=== PATIENT | male | born 1995 | race Caucasian/White ===

== ENCOUNTER 2017-11-08 05:30 | Emergency (ER) | payer OTHER, SELFPAY ==
[2017-11-08 05:45] VITALS: BP 125/78; PULSE 51; RESP 18; TEMP 36.2
--- NOTE | 2017-11-08 05:56 | ED.MALEGU ---
HPI - Male Genitourinary General Chief complaint: Urogenital-Male Stated complaint: KIDNEY STONES Time Seen by Provider: 11/08/17 05:33 Source: patient Mode of arrival: ambulatory Limitations: no limitations History of Present Illness HPI Narrative: Patient with a history of kidney stones presents with a chief complaint of sudden onset left flank pain with radiation to his left groin that started 8:00 p.m.. He denies provocation or palliation. He denies any fever or chills. He denies dysuria, frequency or urgency. He states prior kidney stones of all but on the right side. He has never needed any urological intervention for prior stones Duration: intermittent Location: left flank Severity: severe Quality: aching, burning and sharp Relieving factors: none Exacerbating factors: none Related Data Previous Rx's Medication Instructions Recorded hydrocodone-acetaminophen [[place]] 1 - 2 tab PO Q6HP PRN #10 tab 04/01/16 ibuprofen 600 mg PO Q6HP PRN #20 tab 04/01/16 tamsulosin [Flomax] 0.4 mg PO QDAY 4 Days #0 cap 04/01/16 hydrocodone-acetaminophen [[place]] 1 tab PO Q4HP PRN #15 tab 04/09/16 ondansetron [Zofran ODT] 4 mg SUBLINGUAL Q4HP PRN #15 odt 04/09/16 hydrocodone-acetaminophen 1 tab PO Q4-6H PRN #10 tab 11/08/17 ketorolac 10 mg PO Q6H PRN 2 Days tab 11/08/17 ondansetron [Zofran ODT] 4 mg PO Q6H PRN #10 tab 11/08/17 tamsulosin [Flomax] 0.4 mg PO DAILY #10 cap 11/08/17 Allergies Allergy/AdvReac Type Severity Reaction Status Date / Time No Known Drug Allergies Allergy Verified 11/08/17 05:39 Review of Systems Review of Systems All systems reviewed & are unremarkable except as noted in HPI and below Constitutional Denies chills, Denies fever(s), Denies lethargy and Denies weakness Eyes Denies change in vision, Denies eye discharge, Denies irritation and Denies loss of vision ENT Ears, Nose, Mouth, and Throat: Denies change in voice, Denies neck pain and Denies sore throat Cardiovascular Denies chest pain, Denies irregular heart rhythm, Denies lightheadedness, Denies palpitations, Denies dyspnea, Denies dyspnea on exertion and Denies orthopnea Respiratory Denies cough, Denies dyspnea, Denies dyspnea on exertion and Denies wheezing Gastrointestinal Gastrointestinal: Denies abdominal pain, Denies change in bowel habits, Denies diarrhea, Denies nausea and Denies vomiting Genitourinary Denies hematuria, Reports flank pain, Denies urinary incontinence and Denies urinary urgency Musculoskeletal Denies neck pain Integumentary/Breasts Denies pruritus, Denies erythema, Denies rash and Denies wounds Neurologic Denies confusion, Denies loss of vision and Denies weakness Psychiatric Denies anxiety, Denies confusion, Denies depression, Denies homicidal ideation and Denies suicidal ideation Endocrine Denies palpitations Hematologic/Lymphatic Denies easy bruising Allergic/Immunologic Denies wheezing PFSH Social History Smoking Status: Current every day smoker Exam Narrative Exam Narrative: 22-year-old male obviously uncomfortable, clutching his left flank Initial Vital Signs Initial Vital Signs: Vital Signs Temperature 97.2 F L 11/08/17 05:45 Pulse Rate 51 L 11/08/17 05:45 Respiratory Rate 18 11/08/17 05:45 Blood Pressure 125/78 H 11/08/17 05:45 Const General: cooperative and well developed Nutritional Appearance: well nourished Orientation: alert, awake, oriented x3 and not confused [facility] Head: normocephalic and atraumatic Ears: external ears normal and TM's normal bilaterally Nose: external nose normal and No nasal discharge Face and sinus: sinuses nontender, face symmetric, no sinus tenderness and No dry mucous membranes Mouth: oral mucosae normal and moist mucous membranes Teeth and gingiva: dentition normal Throat: tonsils normal and uvula midline Chest Chest: normal inspection of the chest Resp Effort & Inspection: normal respiratory effort, able to speak in complete sentences, no respiratory distress and no use of accessory muscles Auscultation: clear to auscultation bilaterally, no rales, no rhonchi and no wheezes Cardio Rate: regular rate Rhythm: regular rhythm Heart Sounds: no click, no gallops, no murmurs and no rubs Pulses: normal peripheral pulses Back/Spine/Pelvis Back: No CVA tenderness Cervical Spine: cervical ROM normal and No pain with cervical ROM Thoracic/Lumbar Spine: thoracic and lumbar spine normal to inspection Skin General: no rashes or lesions noted, No jaundice and No petechiae Neuro General: alert, oriented x3, gait normal and no focal motor deficits Speech: speech normal Psych Appearance: well kempt Mental Status: mental status grossly normal Attitude: cooperative Thought Content: normal and suicidality Judgment: judgment good Course Orders Ordered: Discontinued Medications Sodium Chloride (Normal Saline 0.9%) 1,000 mls @ 1,000 mls/hr IV BOLUS ONE Stop: 11/08/17 06:39 Last Infusion: 11/08/17 06:45 Dose: 0 mls/hr Admin: 11/08/17 06:03 Dose: 1,000 mls/hr Ketorolac Tromethamine (Toradol) 15 mg IV NOW ONE Stop: 11/08/17 05:41 Last Admin: 11/08/17 06:01 Dose: 15 mg Ondansetron HCl (Zofran) 4 mg IV NOW ONE Stop: 11/08/17 05:41 Last Admin: 11/08/17 06:01 Dose: 4 mg Reevaluation(s) Reevaluation #1: Patient nearly completely asymptomatic after above-stated therapies Vital Signs - 8 hr 11/08/17 05:45 Temperature 97.2 F L Pulse Rate 51 L Respiratory Rate 18 Blood Pressure [Left Arm] 125/78 H MDM - Male Genitourinary Lab Data Result diagrams: 11/08/17 05:55 11/08/17 05:55 Lab Results 11/08/17 11/08/17 Range/Units 05:55 05:55 WBC 6.4 (4.5-11.0) X10^3/uL RBC 4.93 (4.5-5.9) X10^6/uL Hgb 11.3 L (13.5-17.5) g/dL Hct 35.4 L (41-53) % MCV 71.7 L (80-100) fL MCH 22.9 L (26-34) PG MCHC 32.0 (30-36) % RDW 22.5 H (11.6-14.8) % Plt Count 219 (150-400) X10^3/uL Neut % (Auto) 57.6 (50-75) % Lymph % (Auto) 28.1 (25-40) % [place] % (Auto) 6.4 (3-14) % Eos % (Auto) 7.3 H (2-4) % Baso % (Auto) 0.6 (0-2) % Neut # (Auto) 3700 (4278-4634) /uL RBC Morphology Not Reportable Hypochromasia 2+ H Poikilocytosis 1+ H Anisocytosis 2+ H Microcytosis 2+ H Tear Drop Cells 1+ H Ovalocytes 1+ H Sodium 143 (137-145) mmol/L Potassium 3.5 (3.4-5.1) mmol/L Chloride 103 (98-107) mmol/L Carbon Dioxide 26 (22-32) mmol/L BUN 17 (9-20) mg/dL Creatinine 0.80 (0.66-1.25) mg/dL Estimated GFR > 60.0 (>60) mL/min BUN/Creatinine Ratio 21.3 (6-22) Glucose 100 (70-100) mg/dL Calcium 9.6 (8.4-10.2) mg/dL Discharge Plan Departure Patient Disposition: Home, Self-Care Clinical Impression: Ureterolithiasis Discharge Date/Time: 11/08/17 07:26 Interventions: ED Discharge Assessment Last Done: 11/08/17 07:22 Instructions: DI for Kidney Stones Prescriptions: New hydrocodone-acetaminophen 5-325 mg tablet 1 tab PO Q4-6H PRN (Reason: pain) Qty: 10 RF: 0 ketorolac 10 mg tablet 10 mg PO Q6H PRN (Reason: pain) 2 Days RF: 0 tamsulosin [Flomax] 0.4 mg capsule,extended release 24hr 0.4 mg PO DAILY Qty: 10 RF: 0 ondansetron [Zofran ODT] 4 mg tablet,disintegrating 4 mg PO Q6H PRN (Reason: nausea and vomiting) Qty: 10 RF: 0 No Action hydrocodone-acetaminophen [[place]] 5 MG/325 MG tablet 1 - 2 tab PO Q6HP PRNQty: 10 RF: 0 tamsulosin [Flomax] 0.4 MG capsule,extended release 24hr 0.4 mg PO QDAY 4 Days Qty: 0 RF: 0 ibuprofen 600 MG tablet 600 mg PO Q6HP PRNQty: 20 RF: 0 hydrocodone-acetaminophen [[place]] 5 MG/325 MG tablet 1 tab PO Q4HP PRNQty: 15 RF: 0 ondansetron [Zofran ODT] 4 MG tablet,disintegrating 4 mg Sublingual Q4HP PRNQty: 15 RF: 0 Referrals: Marcell Calvert MD [Non-Staff] - Gregoria Lund DO [Primary Care Provider] -
--- NOTE | 2017-11-08 05:59 | ED_ITS ---
HPI - Male Genitourinary General Chief complaint: Urogenital-Male Stated complaint: KIDNEY STONES Time Seen by Provider: 11/08/17 05:33 Source: patient Mode of arrival: ambulatory Limitations: no limitations History of Present Illness HPI Narrative: Patient with a history of kidney stones presents with a chief complaint of sudden onset left flank pain with radiation to his left groin that started 8:00 p.m.. He denies provocation or palliation. He denies any fever or chills. He denies dysuria, frequency or urgency. He states prior kidney stones of all but on the right side. He has never needed any urological intervention for prior stones Duration: intermittent Location: left flank Severity: severe Quality: aching, burning and sharp Relieving factors: none Exacerbating factors: none Related Data Previous Rx's Medication Instructions Recorded hydrocodone-acetaminophen [[place]] 1 - 2 tab PO Q6HP PRN #10 tab 04/01/16 ibuprofen 600 mg PO Q6HP PRN #20 tab 04/01/16 tamsulosin [Flomax] 0.4 mg PO QDAY 4 Days #0 cap 04/01/16 hydrocodone-acetaminophen [[place]] 1 tab PO Q4HP PRN #15 tab 04/09/16 ondansetron [Zofran ODT] 4 mg SUBLINGUAL Q4HP PRN #15 odt 04/09/16 hydrocodone-acetaminophen 1 tab PO Q4-6H PRN #10 tab 11/08/17 ketorolac 10 mg PO Q6H PRN 2 Days tab 11/08/17 ondansetron [Zofran ODT] 4 mg PO Q6H PRN #10 tab 11/08/17 tamsulosin [Flomax] 0.4 mg PO DAILY #10 cap 11/08/17 Allergies Allergy/AdvReac Type Severity Reaction Status Date / Time No Known Drug Allergies Allergy Verified 11/08/17 05:39 Review of Systems Review of Systems All systems reviewed & are unremarkable except as noted in HPI and below Constitutional Denies chills, Denies fever(s), Denies lethargy and Denies weakness Eyes Denies change in vision, Denies eye discharge, Denies irritation and Denies loss of vision ENT Ears, Nose, Mouth, and Throat: Denies change in voice, Denies neck pain and Denies sore throat Cardiovascular Denies chest pain, Denies irregular heart rhythm, Denies lightheadedness, Denies palpitations, Denies dyspnea, Denies dyspnea on exertion and Denies orthopnea Respiratory Denies cough, Denies dyspnea, Denies dyspnea on exertion and Denies wheezing Gastrointestinal Gastrointestinal: Denies abdominal pain, Denies change in bowel habits, Denies diarrhea, Denies nausea and Denies vomiting Genitourinary Denies hematuria, Reports flank pain, Denies urinary incontinence and Denies urinary urgency Musculoskeletal Denies neck pain Integumentary/Breasts Denies pruritus, Denies erythema, Denies rash and Denies wounds Neurologic Denies confusion, Denies loss of vision and Denies weakness Psychiatric Denies anxiety, Denies confusion, Denies depression, Denies homicidal ideation and Denies suicidal ideation Endocrine Denies palpitations Hematologic/Lymphatic Denies easy bruising Allergic/Immunologic Denies wheezing PFSH Social History Smoking Status: Current every day smoker Exam Narrative Exam Narrative: 22-year-old male obviously uncomfortable, clutching his left flank Initial Vital Signs Initial Vital Signs: Vital Signs Temperature 97.2 F L 11/08/17 05:45 Pulse Rate 51 L 11/08/17 05:45 Respiratory Rate 18 11/08/17 05:45 Blood Pressure 125/78 H 11/08/17 05:45 Const General: cooperative and well developed Nutritional Appearance: well nourished Orientation: alert, awake, oriented x3 and not confused [facility] Head: normocephalic and atraumatic Ears: external ears normal and TM's normal bilaterally Nose: external nose normal and No nasal discharge Face and sinus: sinuses nontender, face symmetric, no sinus tenderness and No dry mucous membranes Mouth: oral mucosae normal and moist mucous membranes Teeth and gingiva: dentition normal Throat: tonsils normal and uvula midline Chest Chest: normal inspection of the chest Resp Effort & Inspection: normal respiratory effort, able to speak in complete sentences, no respiratory distress and no use of accessory muscles Auscultation: clear to auscultation bilaterally, no rales, no rhonchi and no wheezes Cardio Rate: regular rate Rhythm: regular rhythm Heart Sounds: no click, no gallops, no murmurs and no rubs Pulses: normal peripheral pulses Back/Spine/Pelvis Back: No CVA tenderness Cervical Spine: cervical ROM normal and No pain with cervical ROM Thoracic/Lumbar Spine: thoracic and lumbar spine normal to inspection Skin General: no rashes or lesions noted, No jaundice and No petechiae Neuro General: alert, oriented x3, gait normal and no focal motor deficits Speech: speech normal Psych Appearance: well kempt Mental Status: mental status grossly normal Attitude: cooperative Thought Content: normal and suicidality Judgment: judgment good Course Orders Ordered: Discontinued Medications Sodium Chloride (Normal Saline 0.9%) 1,000 mls @ 1,000 mls/hr IV BOLUS ONE Stop: 11/08/17 06:39 Last Infusion: 11/08/17 06:45 Dose: 0 mls/hr Admin: 11/08/17 06:03 Dose: 1,000 mls/hr Ketorolac Tromethamine (Toradol) 15 mg IV NOW ONE Stop: 11/08/17 05:41 Last Admin: 11/08/17 06:01 Dose: 15 mg Ondansetron HCl (Zofran) 4 mg IV NOW ONE Stop: 11/08/17 05:41 Last Admin: 11/08/17 06:01 Dose: 4 mg Reevaluation(s) Reevaluation #1: Patient nearly completely asymptomatic after above-stated therapies Vital Signs - 8 hr 11/08/17 05:45 Temperature 97.2 F L Pulse Rate 51 L Respiratory Rate 18 Blood Pressure [Left Arm] 125/78 H MDM - Male Genitourinary Lab Data Result diagrams: 11/08/17 05:55 11/08/17 05:55 Lab Results 11/08/17 11/08/17 Range/Units 05:55 05:55 WBC 6.4 (4.5-11.0) X10^3/uL RBC 4.93 (4.5-5.9) X10^6/uL Hgb 11.3 L (13.5-17.5) g/dL Hct 35.4 L (41-53) % MCV 71.7 L (80-100) fL MCH 22.9 L (26-34) PG MCHC 32.0 (30-36) % RDW 22.5 H (11.6-14.8) % Plt Count 219 (150-400) X10^3/uL Neut % (Auto) 57.6 (50-75) % Lymph % (Auto) 28.1 (25-40) % [place] % (Auto) 6.4 (3-14) % Eos % (Auto) 7.3 H (2-4) % Baso % (Auto) 0.6 (0-2) % Neut # (Auto) 3700 (6732-9129) /uL RBC Morphology Not Reportable Hypochromasia 2+ H Poikilocytosis 1+ H Anisocytosis 2+ H Microcytosis 2+ H Tear Drop Cells 1+ H Ovalocytes 1+ H Sodium 143 (137-145) mmol/L Potassium 3.5 (3.4-5.1) mmol/L Chloride 103 (98-107) mmol/L Carbon Dioxide 26 (22-32) mmol/L BUN 17 (9-20) mg/dL Creatinine 0.80 (0.66-1.25) mg/dL Estimated GFR > 60.0 (>60) mL/min BUN/Creatinine Ratio 21.3 (6-22) Glucose 100 (70-100) mg/dL Calcium 9.6 (8.4-10.2) mg/dL Discharge Plan Departure Patient Disposition: Home, Self-Care Clinical Impression: Ureterolithiasis Discharge Date/Time: 11/08/17 07:26 Interventions: ED Discharge Assessment Last Done: 11/08/17 07:22 Instructions: DI for Kidney Stones Prescriptions: New hydrocodone-acetaminophen 5-325 mg tablet 1 tab PO Q4-6H PRN (Reason: pain) Qty: 10 RF: 0 ketorolac 10 mg tablet 10 mg PO Q6H PRN (Reason: pain) 2 Days RF: 0 tamsulosin [Flomax] 0.4 mg capsule,extended release 24hr 0.4 mg PO DAILY Qty: 10 RF: 0 ondansetron [Zofran ODT] 4 mg tablet,disintegrating 4 mg PO Q6H PRN (Reason: nausea and vomiting) Qty: 10 RF: 0 No Action hydrocodone-acetaminophen [[place]] 5 MG/325 MG tablet 1 - 2 tab PO Q6HP PRNQty: 10 RF: 0 tamsulosin [Flomax] 0.4 MG capsule,extended release 24hr 0.4 mg PO QDAY 4 Days Qty: 0 RF: 0 ibuprofen 600 MG tablet 600 mg PO Q6HP PRNQty: 20 RF: 0 hydrocodone-acetaminophen [[place]] 5 MG/325 MG tablet 1 tab PO Q4HP PRNQty: 15 RF: 0 ondansetron [Zofran ODT] 4 MG tablet,disintegrating 4 mg Sublingual Q4HP PRNQty: 15 RF: 0 Referrals: Marcell Calvert MD [Non-Staff] - Gregoria Lund DO [Primary Care Provider] -
[2017-11-08] MEDS: KETOROLAC 30 MG/ML VIAL 15 MG IV (06:01)
[2017-11-08] MEDS: ONDANSETRON 4 MG/2 ML INJ IV (06:01)
[2017-11-08] MEDS: SODIUM CHLORIDE 0.9% 1,000 ML 1000 ML IV (06:03)
[2017-11-08 06:12] LABS: Basophils Percent Auto 0.6 % (0-2); Eosinophils Percent Auto 7.3 % (2-4); Hematocrit 35.4 % (41-53); Hemoglobin 11.3 g/dL (13.5-17.5); Lymphocytes Percent Auto 28.1 % (25-40); Mean Corpuscular Hemoglobin 22.9 PG (26-34); Mean Corpuscular Volume 71.7 fL (80-100); Monocytes Percent Auto 6.4 % (3-14); Neutrophils Absolute Auto 3700 /uL (3000-5900); Neutrophils Percent Auto 57.6 % (50-75); Platelet Count 219 X10^3/uL (150-400); Red Blood Cell Count 4.93 X10^6/uL (4.5-5.9); Red Cell Distribution Width 22.5 % (11.6-14.8); White Blood Cell Count 6.4 X10^3/uL (4.5-11.0)
[2017-11-08 06:14] LABS: Add Manual Diff / Slide Review SLIDE REVIEW; BUN Creatinine Ratio 21.3 (6-22); Blood Urea Nitrogen 17 mg/dL (9-20); Calcium 9.6 mg/dL (8.4-10.2); Carbon Dioxide 26 mmol/L (22-32); Chloride 103 mmol/L (98-107); Estimated Glomerular Filt Rate > 60.0 mL/min (>60); Glucose 100 mg/dL (70-100); HEMOLYSIS < 15 (0-50); Potassium 3.5 mmol/L (3.4-5.1); Sodium 143 mmol/L (137-145)
[2017-11-08 06:43] LABS: Anisocytosis 2+; Hypochromasia 2+
[2017-11-08 06:44] LABS: Ovalocytes 1+; Poikilocytosis 1+; Tear Drop Cells 1+
[2017-11-08 06:46] LABS: Microcytosis 2+
[2017-11-08 07:22] VITALS: BP 122/82; PULSE 71; RESP 16; O2SAT 100
== END 2017-11-08 07:26 | disposition home or self-care (01) ==
PROVIDERS: Emergency Provider Emergency Medicine; PCP Family Medicine
DX: N20.0 Calculus of kidney (principal)
CPT/HCPCS: 36591; 80048; 81003; 85025; 96361; 96374; 96375; 99283; 99284; J1885; J2405

== ENCOUNTER 2017-12-04 17:01 | Emergency (ER) | payer OTHER, SELFPAY ==
[2017-12-04 17:06] VITALS: BP 147/82; PULSE 61; RESP 30; TEMP 36.8; O2SAT 100; BMI 18.2
--- NOTE | 2017-12-04 18:06 | ED.MALEGU ---
HPI - Male Genitourinary General Chief complaint: Urogenital-Male Stated complaint: kidney stones Time Seen by Provider: 12/04/17 17:20 Source: patient Mode of arrival: ambulatory Limitations: no limitations History of Present Illness HPI Narrative: 22-year-old male with history of kidney stones presents to the emergency department with severe left groin and flank pain. He was 1st seen by me for this kidney stone on November 08 and had normal labs and better after Toradol. He was given prescriptions and sent home and has been to [facility] in [place], [place] 3 or 4 times for ongoing management this pain. He has not had any CT scans but multiple bedside ultrasounds up to this point. He has had normal labs and generally gets better with some Toradol. Over the past day or 2 however patient has been febrile with chills at home and has had decreased appetite with nausea and vomiting. Patient has been NPO all day and has not had any food since the evening 12/03 Onset (ago): week(s) Duration: constant Location: left inguinal region and left flank Severity: severe Severity scale (1-10): 10 Quality: sharp and stabbing Relieving factors: none Exacerbating factors: none Related Data Previous Rx's Medication Instructions Recorded hydrocodone-acetaminophen 1 tab PO Q4-6H PRN #10 tab 11/08/17 ondansetron [Zofran ODT] 4 mg PO Q6H PRN #10 tab 11/08/17 tamsulosin [Flomax] 0.4 mg PO DAILY #10 cap 11/08/17 Allergies Allergy/AdvReac Type Severity Reaction Status Date / Time No Known Drug Allergies Allergy Verified 12/04/17 17:06 Review of Systems Review of Systems All systems reviewed & are unremarkable except as noted in HPI and below Constitutional Denies chills, Denies fever(s), Denies lethargy and Denies weakness Eyes Denies change in vision, Denies eye discharge, Denies irritation and Denies loss of vision ENT Ears, Nose, Mouth, and Throat: Denies change in voice, Denies neck pain and Denies sore throat Cardiovascular Denies chest pain, Denies irregular heart rhythm, Denies lightheadedness, Denies palpitations, Denies dyspnea, Denies dyspnea on exertion and Denies orthopnea Respiratory Denies cough, Denies dyspnea, Denies dyspnea on exertion and Denies wheezing Gastrointestinal Gastrointestinal: Denies abdominal pain, Denies change in bowel habits, Denies diarrhea, Denies nausea and Denies vomiting Genitourinary Denies hematuria, Reports flank pain, Denies urinary incontinence and Denies urinary urgency Musculoskeletal Denies neck pain Integumentary/Breasts Denies pruritus, Denies erythema, Denies rash and Denies wounds Neurologic Denies confusion, Denies loss of vision and Denies weakness Psychiatric Denies anxiety, Denies confusion, Denies depression, Denies homicidal ideation and Denies suicidal ideation Endocrine Denies palpitations Hematologic/Lymphatic Denies easy bruising Allergic/Immunologic Denies wheezing PFSH Social History Smoking Status: Current every day smoker Exam Initial Vital Signs Initial Vital Signs: Vital Signs Temperature 98.2 F 12/04/17 17:06 Pulse Rate 61 12/04/17 17:06 Respiratory Rate 30 H 12/04/17 17:06 Blood Pressure 147/82 H 12/04/17 17:06 Pulse Oximetry 100 12/04/17 17:06 Course Orders Ordered: ED Orders 12/04/17 18:38 Basic Metabolic Panel Stat Complete Blood Count AUTO DIFF Stat 12/04/17 19:12 CT kidney ureter bladder (KUB) Stat 12/04/17 19:30 Urine Microscopic Stat Levofloxacin (Levaquin) 500 mg in 100 mls @ 100 mls/hr IV Q24H ALEX Last Infusion: 12/05/17 00:13 Dose: 0 mls/hr Admin: 12/04/17 23:08 Dose: 100 mls/hr Discontinued Medications Sodium Chloride (Normal Saline 0.9%) 1,000 mls @ 1,000 mls/hr IV BOLUS ONE Stop: 12/04/17 19:06 Last Infusion: 12/04/17 20:00 Dose: 0 mls/hr Admin: 12/04/17 18:47 Dose: 1,000 mls/hr Ketorolac Tromethamine (Toradol) 15 mg IV NOW ONE Stop: 12/04/17 18:08 Last Admin: 12/04/17 18:52 Dose: 15 mg Ondansetron HCl (Zofran) 4 mg IV NOW ONE Stop: 12/04/17 18:08 Last Admin: 12/04/17 18:47 Dose: 4 mg Reevaluation(s) Reevaluation #1: Patient has been much more comfortable after fluids and Toradol was Zofran Consultations Consultation #1: Called to Dr. Colunga at [facility] urology, after discussion of duration of symptoms (1 month), and evolution systemic findings such as nausea, vomiting, fever and chills, he recommends transfer for likely stent and stone removal Vital Signs - 8 hr 12/04/17 19:57 12/04/17 22:13 Temperature 98.0 F 97.9 F Pulse Rate 62 55 L Respiratory Rate 16 16 Blood Pressure [Right Arm] 133/58 H 132/60 H Pulse Oximetry 99 99 MDM - Male Genitourinary Medical Records Attestation: I reviewed the patient's medical records. Lab Data Attestation: I reviewed the patient's lab results. Result diagrams: 12/04/17 18:38 12/04/17 18:38 Lab Results 12/04/17 12/04/17 12/04/17 Range/Units 18:38 18:38 19:30 WBC 13.1 H (4.5-11.0) X10^3/uL RBC 4.61 (4.5-5.9) X10^6/uL Hgb 10.6 L (13.5-17.5) g/dL Hct 32.8 L (41-53) % MCV 71.2 L (80-100) fL MCH 23.0 L (26-34) PG MCHC 32.3 (30-36) % RDW 22.6 H (11.6-14.8) % Plt Count 221 (150-400) X10^3/uL Neut % (Auto) 87.4 H (50-75) % Lymph % (Auto) 6.2 L (25-40) % [place] % (Auto) 4.5 (3-14) % Eos % (Auto) 0.9 L (2-4) % Baso % (Auto) 1.0 (0-2) % Neut # (Auto) 63509 H (5586-5366) /uL RBC Morphology Not Reportable Hypochromasia 2+ H Poikilocytosis 2+ H Anisocytosis 3+ H Microcytosis 2+ H Sodium 141 (137-145) mmol/L Potassium 4.0 (3.4-5.1) mmol/L Chloride 104 (98-107) mmol/L Carbon Dioxide 23 (22-32) mmol/L BUN 14 (9-20) mg/dL Creatinine 1.40 H (0.66-1.25) mg/dL Estimated GFR > 60.0 (>60) mL/min BUN/Creatinine Ratio 10.0 (6-22) Glucose 106 H (70-100) mg/dL Calcium 9.4 (8.4-10.2) mg/dL Urine RBC 5-10/hpf H (0-5/HPF) Urine WBC 1-5/hpf (0-5/HPF) Ur Squamous Epith Cells 0-1 /hpf Urine Bacteria Occasional (0-1) (None) Hyaline Casts 0-1/lpf (None) Urine Mucus 1+ H (Negative) Ur Culture Indicated? Cult not indicated Micro UA Comment Not Reportable Imaging Data CT scan - abdomen: Radiologist's impression: PROCEDURE: CT KIDNEY URETER BLADDER (KUB) INDICATIONS: flank pain, worsening, fever, elevated WBCs, elevated creati TECHNIQUE: Noncontrast 5 mm thick sections acquired from the diaphragms to the symphysis. 5 mm thick coronal and sagittal reformats were then performed. For radiation dose reduction, the following was used: automated exposure control, adjustment of mA and/or kV according to patient size. COMPARISON: [facility], CT, KIDNEY/ URETER/BLADDER, 04/09/2016, 3:48. FINDINGS: Image quality: Excellent. Lung bases: Lung bases are clear. Heart size is normal. Urinary system: Both kidneys are normal in size. 6 mm stone in the distal left ureter is causing moderate left-sided hydroureteronephrosis. There there are multiple, 1-2 mm in diameter there is a 5 mm in diameter stone in the proximal right ureter causing mild right-sided hydronephrosis. nonobstructing stone in the right kidney. Bladder wall thickness is normal; no calcified bladder stones. Other solid organs: Liver is normal in size. Gallbladder is within normal limits. Pancreas is normal in contours. Spleen is normal in size. No adrenal nodules. Peritoneum and bowel: Unenhanced bowel loops demonstrate normal wall thickness and caliber. No free fluid or air. The appendix is normal. Nodes and vessels: No retroperitoneal or mesenteric adenopathy by size criteria. Aorta and inferior vena cava are normal in caliber. Abdominal wall: No ventral hernias. Pelvis: No free pelvic fluid. No inguinal hernias or adenopathy. Bones: No suspicious bony lesions. No vertebral body compression fractures. Bilateral L5-S1 pars interarticularis defects with trace L5-S1 isthmic spondylolisthesis. IMPRESSION: 1. 6 mm stone in the distal left ureter causing moderate left-sided hydroureteronephrosis. 2.5 mm stone in the proximal right ureter causing mild right-sided hydronephrosis. 2. Multiple 1-2 mm nonobstructing right renal stones. Dictated by: Kimberlyn Hernandez MD, PhD on 12/04/2017 at 20:08 Approved by: Kimberlyn Hernandez MD, PhD on 12/04/2017 at 20:12 [facility] Narrative Medical decision making narrative: Patient is had this stone for approaching 1 month and has had multiple visits to emergency department (5) [facility] [place]. Patient is now showing signs of systemic infection including fever and chills at home with nausea and vomiting, and intolerance of oral hydration at home. Discharge Plan Departure Patient Disposition: [facility] Clinical Impression: Kidney stone on left side, SIRS (systemic inflammatory response syndrome) Prescriptions: No Action hydrocodone-acetaminophen 5-325 mg tablet 1 tab PO Q4-6H PRN (Reason: pain) Qty: 10 RF: 0 tamsulosin [Flomax] 0.4 mg capsule,extended release 24hr 0.4 mg PO DAILY Qty: 10 RF: 0 ondansetron [Zofran ODT] 4 mg tablet,disintegrating 4 mg PO Q6H PRN (Reason: nausea and vomiting) Qty: 10 RF: 0
[2017-12-04] MEDS: SODIUM CHLORIDE 0.9% 1,000 ML 1000 ML IV (18:47)
[2017-12-04] MEDS: ONDANSETRON 4 MG/2 ML INJ IV (18:47)
[2017-12-04] MEDS: KETOROLAC 30 MG/ML VIAL 15 MG IV (18:52)
[2017-12-04 18:59] LABS: Blood Urea Nitrogen 14 mg/dL (9-20); Calcium 9.4 mg/dL (8.4-10.2); Carbon Dioxide 23 mmol/L (22-32); Chloride 104 mmol/L (98-107); Estimated Glomerular Filt Rate > 60.0 mL/min (>60); Glucose 106 mg/dL (70-100); Sodium 141 mmol/L (137-145)
[2017-12-04 19:04] LABS: HEMOLYSIS 64 (0-50)
[2017-12-04 19:08] LABS: Add Manual Diff / Slide Review NO; Eosinophils Percent Auto 0.9 % (2-4); Hematocrit 32.8 % (41-53); Hemoglobin 10.6 g/dL (13.5-17.5); Lymphocytes Percent Auto 6.2 % (25-40); Mean Corpuscular HGB Conc 32.3 % (30-36); Mean Corpuscular Volume 71.2 fL (80-100); Monocytes Percent Auto 4.5 % (3-14); Neutrophils Absolute Auto 11400 /uL (3000-5900); Neutrophils Percent Auto 87.4 % (50-75); Platelet Count 221 X10^3/uL (150-400); Red Blood Cell Count 4.61 X10^6/uL (4.5-5.9); Red Cell Distribution Width 22.6 % (11.6-14.8); White Blood Cell Count 13.1 X10^3/uL (4.5-11.0)
--- NOTE | 2017-12-04 19:12 | DI.CT.S_ITS ---
PROCEDURE: CT KIDNEY URETER BLADDER (KUB) INDICATIONS: flank pain, worsening, fever, elevated WBCs, elevated creati TECHNIQUE: Noncontrast 5 mm thick sections acquired from the diaphragms to the symphysis. 5 mm thick coronal and sagittal reformats were then performed. For radiation dose reduction, the following was used: automated exposure control, adjustment of mA and/or kV according to patient size. COMPARISON: [facility], CT, KIDNEY/ URETER/BLADDER, 04/09/2016, 3:48. FINDINGS: Image quality: Excellent. Lung bases: Lung bases are clear. Heart size is normal. Urinary system: Both kidneys are normal in size. 6 mm stone in the distal left ureter is causing moderate left-sided hydroureteronephrosis. There there are multiple, 1-2 mm in diameter there is a 5 mm in diameter stone in the proximal right ureter causing mild right-sided hydronephrosis. nonobstructing stone in the right kidney. Bladder wall thickness is normal; no calcified bladder stones. Other solid organs: Liver is normal in size. Gallbladder is within normal limits. Pancreas is normal in contours. Spleen is normal in size. No adrenal nodules. Peritoneum and bowel: Unenhanced bowel loops demonstrate normal wall thickness and caliber. No free fluid or air. The appendix is normal. Nodes and vessels: No retroperitoneal or mesenteric adenopathy by size criteria. Aorta and inferior vena cava are normal in caliber. Abdominal wall: No ventral hernias. Pelvis: No free pelvic fluid. No inguinal hernias or adenopathy. Bones: No suspicious bony lesions. No vertebral body compression fractures. Bilateral L5-S1 pars interarticularis defects with trace L5-S1 isthmic spondylolisthesis. IMPRESSION: 1. 6 mm stone in the distal left ureter causing moderate left-sided hydroureteronephrosis. 2.5 mm stone in the proximal right ureter causing mild right-sided hydronephrosis. 2. Multiple 1-2 mm nonobstructing right renal stones. Dictated by: Kimberlyn Hernandez MD, PhD on 12/04/2017 at 20:08 Approved by: Kimberlyn Hernandez MD, PhD on 12/04/2017 at 20:12
[2017-12-04 19:13] LABS: Anisocytosis 3+; Hypochromasia 2+; Microcytosis 2+; Poikilocytosis 2+
[2017-12-04 19:57] VITALS: BP 133/58; PULSE 62; RESP 16; TEMP 36.7; O2SAT 99
[2017-12-04 21:28] LABS: RBC Urine 5-10/HPF (0-5/HPF); WBC Urine 1-5/HPF (0-5/HPF)
[2017-12-04 21:29] LABS: Bacteria Urine Occasional (0-1); Hyaline Casts Urine 0-1/LPF; Mucus Urine 1+ (Negative); Squamous Epithelial Cell Urine 0-1 /HPF
[2017-12-04 21:30] LABS: Culture Indicated Urine Cult Not Indicated
[2017-12-04 22:13] VITALS: BP 132/60; PULSE 55; RESP 16; TEMP 36.6; O2SAT 99
[2017-12-04] MEDS: levoFLOXacin 500 MG/100 ML PIGGYBACK 100 MG IV (23:08)
== END 2017-12-05 03:58 | disposition short-term general hospital (02) ==
PROVIDERS: Emergency Provider Emergency Medicine
DX: N20.0 Calculus of kidney (principal); R65.10 Systemic inflammatory response syndrome (SIRS) of non-infectious origin without acute organ dysfunction
CPT/HCPCS: 36591; 74176; 80048; 81003; 81015; 85025; 96361; 96374; 96375; 99283; 99284; J1885; J1956; J2405

== ENCOUNTER 2017-12-16 18:43 | Emergency (ER) | payer OTHER, SELFPAY ==
[2017-12-16 18:47] VITALS: BP 125/71; PULSE 97; RESP 16; TEMP 36.6; O2SAT 100; BMI 18.2
[2017-12-16 20:57] VITALS: BP 135/75; PULSE 73; RESP 14; O2SAT 100
--- NOTE | 2017-12-16 21:24 | DI.RAD.S_ITS ---
PROCEDURE: XR KUB INDICATIONS: B/L ureteral stent placement TECHNIQUE: One view of the abdomen acquired. COMPARISON: None. FINDINGS: Surgical changes and devices: There are bilateral ureteral stents with the [place] loop normally fill performed and in expected position. Bowel: Bowel gas pattern is normal. Soft tissues: No suspicious abdominal calcifications. Visualized solid organ contours appear normal in size. Bones: No suspicious bony lesions. IMPRESSION: Expected appearance of bilateral ureteral stents. Dictated by: Robin Zurita M.D. on 12/17/2017 at 8:31 Approved by: Robin Zurita M.D. on 12/17/2017 at 8:32
[2017-12-16 21:33] LABS: Blood Urea Nitrogen 18 mg/dL (9-20); Calcium 9.4 mg/dL (8.4-10.2); Carbon Dioxide 29 mmol/L (22-32); Chloride 102 mmol/L (98-107); Estimated Glomerular Filt Rate > 60.0 mL/min (>60); Glucose 96 mg/dL (70-100); HEMOLYSIS 17 (0-50); Potassium 3.6 mmol/L (3.4-5.1); Sodium 141 mmol/L (137-145)
[2017-12-16 21:34] LABS: Add Manual Diff / Slide Review NO; Basophils Percent Auto 0.6 % (0-2); Eosinophils Percent Auto 4.3 % (2-4); Hematocrit 33.4 % (41-53); Hemoglobin 10.5 g/dL (13.5-17.5); Mean Corpuscular HGB Conc 31.6 % (30-36); Mean Corpuscular Hemoglobin 22.3 PG (26-34); Mean Corpuscular Volume 70.7 fL (80-100); Monocytes Percent Auto 5.9 % (3-14); Neutrophils Absolute Auto 7600 /uL (3000-5900); Neutrophils Percent Auto 70.2 % (50-75); Platelet Count 321 X10^3/uL (150-400); Red Blood Cell Count 4.72 X10^6/uL (4.5-5.9); Red Cell Distribution Width 22.7 % (11.6-14.8); White Blood Cell Count 10.9 X10^3/uL (4.5-11.0)
[2017-12-16] MEDS: SODIUM CHLORIDE 0.9% 1,000 ML 1000 ML IV (21:41)
[2017-12-16 21:57] LABS: Anisocytosis 3+
[2017-12-16 21:58] LABS: Hypochromasia 2+; Microcytosis 2+; Poikilocytosis 2+
--- NOTE | 2017-12-16 22:06 | ED_ITS ---
HPI - Male Genitourinary General Chief complaint: Urogenital-Male Stated complaint: BLOOD URINE,PAIN IN RT ABD, POST SURGERY Time Seen by Provider: 12/16/17 19:24 Source: patient and family Mode of arrival: ambulatory Limitations: no limitations History of Present Illness HPI Narrative: 22-year-old male with history of kidney stones, known well to myself, presents with chief complaint of 5 days of worsening right flank pain and hematuria. He was last seen by myself on December 04 when he had a septic stone in his left UVJ with evidence of renal failure, he was transported to [facility] where he was admitted for a few days and had bilateral ureteral stents placed. He denies any significant pain, fever or chills. He called the urologist last night was told to present to his closest emergency department for evaluation of this flank pain and hematuria MD Complaint: hernia Onset (ago): day(s) Duration: constant Location: right flank Severity: mild Quality: aching Related Data Previous Rx's Medication Instructions Recorded hydrocodone-acetaminophen 1 tab PO Q4-6H PRN #10 tab 11/08/17 ondansetron [Zofran ODT] 4 mg PO Q6H PRN #10 tab 11/08/17 tamsulosin [Flomax] 0.4 mg PO DAILY #10 cap 11/08/17 ketorolac 10 mg PO Q6H PRN #20 tab 12/17/17 Allergies Allergy/AdvReac Type Severity Reaction Status Date / Time No Known Drug Allergies Allergy Verified 12/04/17 17:06 Review of Systems Review of Systems All systems reviewed & are unremarkable except as noted in HPI and below Constitutional Denies chills, Denies fever(s), Denies lethargy and Denies weakness Eyes Denies change in vision, Denies eye discharge, Denies irritation and Denies loss of vision ENT Ears, Nose, Mouth, and Throat: Denies change in voice, Denies neck pain and Denies sore throat Cardiovascular Denies chest pain, Denies irregular heart rhythm, Denies lightheadedness, Denies palpitations, Denies dyspnea, Denies dyspnea on exertion and Denies orthopnea Respiratory Denies cough, Denies dyspnea, Denies dyspnea on exertion and Denies wheezing Gastrointestinal Gastrointestinal: Denies abdominal pain, Denies change in bowel habits, Denies diarrhea, Denies nausea and Denies vomiting Genitourinary Reports hematuria, Reports flank pain, Denies urinary incontinence and Denies urinary urgency Musculoskeletal Denies neck pain Integumentary/Breasts Denies pruritus, Denies erythema, Denies rash and Denies wounds Neurologic Denies confusion, Denies loss of vision and Denies weakness Psychiatric Denies anxiety, Denies confusion, Denies depression, Denies homicidal ideation and Denies suicidal ideation Endocrine Denies palpitations Hematologic/Lymphatic Denies easy bruising Allergic/Immunologic Denies wheezing PFSH Surgical History S/P ureteral stent placement (Acute) Social History Smoking Status: Current every day smoker Exam Initial Vital Signs Initial Vital Signs: Vital Signs Temperature 97.8 F 12/16/17 18:47 Pulse Rate 97 H 12/16/17 18:47 Respiratory Rate 16 12/16/17 18:47 Blood Pressure 125/71 H 12/16/17 18:47 Pulse Oximetry 100 12/16/17 18:47 Const General: cooperative and well developed Nutritional Appearance: well nourished Orientation: alert, awake, oriented x3 and not confused HENTX Head: normocephalic and atraumatic Ears: external ears normal and TM's normal bilaterally Nose: external nose normal and No nasal discharge Face and sinus: sinuses nontender, face symmetric, no sinus tenderness and No dry mucous membranes Mouth: oral mucosae normal and moist mucous membranes Teeth and gingiva: dentition normal Throat: tonsils normal and uvula midline Eyes General: appearance normal, both eyes and all related structures Eyelids: eyelids normal Conjunctivae: conjunctivae normal Sclera: sclerae normal Pupils: PERRL EOM: EOM intact bilaterally Neck Neck: normal visual inspection, trachea midline, No lymphadenopathy, No midline deformity and No JVD Lymphatic: No lymphedema Chest Chest: normal inspection of the chest Resp Effort & Inspection: normal respiratory effort, able to speak in complete sentences, no respiratory distress and no use of accessory muscles Auscultation: clear to auscultation bilaterally, no rales, no rhonchi and no wheezes Cardio Rate: regular rate Rhythm: regular rhythm Heart Sounds: no click, no gallops, no murmurs and no rubs Pulses: normal peripheral pulses GI Inspection: non-distended Palpation: soft, no hepatosplenomegaly, No guarding, No pulsatile mass and No tender Auscultation: normal bowel sounds Back/Spine/Pelvis Back: No CVA tenderness Cervical Spine: cervical ROM normal and No pain with cervical ROM Thoracic/Lumbar Spine: thoracic and lumbar spine normal to inspection Skin General: no rashes or lesions noted, No jaundice and No petechiae Neuro General: alert, oriented x3, gait normal and no focal motor deficits Speech: speech normal Extrem General: full ROM, no clubbing, cyanosis or edema, no pedal edema and no calf tenderness Psych Appearance: well kempt Mental Status: mental status grossly normal Attitude: cooperative Thought Content: normal and suicidality Judgment: judgment good Course Orders Ordered: ED Orders 12/16/17 21:00 Basic Metabolic Panel Stat Complete Blood Count AUTO DIFF Stat 12/16/17 21:24 XR KUB Stat 12/16/17 22:12 Urinalysis and Microscopic Stat Discontinued Medications Sodium Chloride (Normal Saline 0.9%) 1,000 mls @ 1,000 mls/hr IV BOLUS ONE Stop: 12/16/17 22:15 Last Infusion: 12/16/17 22:41 Dose: 0 mls/hr Admin: 12/16/17 21:41 Dose: 1,000 mls/hr Consultations Consultation #1: Called to urology at the [facility] whom is able to review the patient's records and notes the plan was to follow up with [facility] as they were unsuccessful to convince [facility] to allow them to maintain the full care of the patient. Discussed the patient's presentation today and given apparent normal placement of stents, no fever, minimal ongoing pain in the , and no clots in the urine he is safe for discharge with instructions to follow up, after calling [facility] for direction Vital Signs - 8 hr 12/16/17 18:47 12/16/17 20:57 12/16/17 22:16 Temperature 97.8 F Pulse Rate 97 H 73 61 Respiratory Rate 16 14 17 Blood Pressure 125/71 H Blood Pressure [Right Arm] 135/75 H 122/73 H Pulse Oximetry 100 100 100 12/16/17 23:21 12/17/17 01:02 Temperature 97.1 F L Pulse Rate 60 61 Respiratory Rate 15 14 Blood Pressure 120/72 Blood Pressure [Right Arm] 121/72 H Pulse Oximetry 99 99 MDM - Male Genitourinary Lab Data Result diagrams: 12/16/17 21:00 12/16/17 21:00 Lab Results 12/16/17 12/16/17 Range/Units 21:00 21:00 WBC 10.9 (4.5-11.0) X10^3/uL RBC 4.72 (4.5-5.9) X10^6/uL Hgb 10.5 L (13.5-17.5) g/dL Hct 33.4 L (41-53) % MCV 70.7 L (80-100) fL MCH 22.3 L (26-34) PG MCHC 31.6 (30-36) % RDW 22.7 H (11.6-14.8) % Plt Count 321 (150-400) X10^3/uL Neut % (Auto) 70.2 (50-75) % Lymph % (Auto) 19.0 L (25-40) % [place] % (Auto) 5.9 (3-14) % Eos % (Auto) 4.3 H (2-4) % Baso % (Auto) 0.6 (0-2) % Neut # (Auto) 7600 H (7174-0574) /uL RBC Morphology Not Reportable Hypochromasia 2+ H Poikilocytosis 2+ H Anisocytosis 3+ H Microcytosis 2+ H Sodium 141 (137-145) mmol/L Potassium 3.6 (3.4-5.1) mmol/L Chloride 102 (98-107) mmol/L Carbon Dioxide 29 (22-32) mmol/L BUN 18 (9-20) mg/dL Creatinine 0.90 (0.66-1.25) mg/dL Estimated GFR > 60.0 (>60) mL/min BUN/Creatinine Ratio 20.0 (6-22) Glucose 96 (70-100) mg/dL Calcium 9.4 (8.4-10.2) mg/dL Discharge Plan Departure Patient Disposition: Home, Self-Care Clinical Impression: Acute flank pain, Hematuria Interventions: ED Discharge Assessment Last Done: 12/17/17 01:02 Instructions: DI for Hematuria Activity Restrictions/Additional Instructions: *You have been diagnosed with [ Hematuria ] *What to do: *Take medications as directed *Call [facility] tomorrow. Tell them You need a [facility]ist to follow up with and that you had been seen at the [facility] for an emergent procedure but had been told follow-up must be with [facility], they will help you from there. *Return to ER if you should have any new, worsening or concerning symptoms such as fever or blood in her urine with clots Prescriptions: New ketorolac 10 mg tablet 10 mg PO Q6H PRN (Reason: pain) Qty: 20 RF: 0 No Action hydrocodone-acetaminophen 5-325 mg tablet 1 tab PO Q4-6H PRN (Reason: pain) Qty: 10 RF: 0 tamsulosin [Flomax] 0.4 mg capsule,extended release 24hr 0.4 mg PO DAILY Qty: 10 RF: 0 ondansetron [Zofran ODT] 4 mg tablet,disintegrating 4 mg PO Q6H PRN (Reason: nausea and vomiting) Qty: 10 RF: 0
[2017-12-16 22:16] VITALS: BP 122/73; PULSE 61; RESP 17; O2SAT 100
[2017-12-16 23:21] VITALS: BP 121/72; PULSE 60; RESP 15; O2SAT 99
[2017-12-17 01:02] VITALS: BP 120/72; PULSE 61; RESP 14; TEMP 36.2; O2SAT 99
== END 2017-12-17 01:02 | disposition home or self-care (01) ==
PROVIDERS: Emergency Provider Emergency Medicine
DX: R10.9 Unspecified abdominal pain (principal); R31.9 Hematuria, unspecified
CPT/HCPCS: 36591; 74018; 80048; 85025; 96360; 99283; 99284

== ENCOUNTER 2019-07-28 18:27 | Emergency (ER) | payer OTHER, SELFPAY ==
[2019-07-28 18:30] VITALS: BP 121/58; PULSE 59; RESP 18; TEMP 37.2; O2SAT 100
--- NOTE | 2019-07-28 19:00 | ED.BACK ---
HPI - Back Pain/Injury General Chief Complaint: Back Pain/Injury Stated Complaint: hurt back a week ago, painful to move Time Seen by Provider: 07/28/19 19:00 Source: patient Mode of arrival: Ambulatory Limitations: no limitations History of Present Illness HPI Narrative: 24-year-old male here for evaluation of left upper back pain. Patient states that his symptoms have been going on for the past week. No specific trauma. He states he has had symptoms like this in the past but is only lasted a couple days for it to go away. The symptoms have been over the past week. It does hurt for him to turn his head to the right. No fevers. Related Data Previous Rx's Medication Instructions Recorded hydrocodone-acetaminophen 1 tab PO Q4-6H PRN #10 tab 11/08/17 ondansetron [Zofran ODT] 4 mg PO Q6H PRN #10 tab 11/08/17 tamsulosin [Flomax] 0.4 mg PO DAILY #10 cap 11/08/17 ketorolac 10 mg PO Q6H PRN #20 tab 12/17/17 cyclobenzaprine 10 mg PO TID PRN #12 tab 07/28/19 lidocaine 1 patch TOP DAILY #15 each 07/28/19 Allergies Allergy/AdvReac Type Severity Reaction Status Date / Time No Known Drug Allergies Allergy Verified 07/28/19 18:30 Review of Systems Constitutional Constitutional: Denies fever(s) and Denies headache(s) ENT Ears, Nose, Mouth, and Throat: Denies headache(s) Cardiovascular Cardiovascular: Denies chest pain and Denies dyspnea Respiratory Respiratory: Denies dyspnea Gastrointestinal Gastrointestinal: Denies abdominal pain Musculoskeletal Comments: Left-sided neck pain Integumentary/Breasts Skin/Breast: Denies lesions and Denies rash Neurologic Neurologic: Denies behavioral changes and Denies headache(s) Psychiatric Psychiatric: Denies behavioral changes Hematologic/Lymphatic Hematologic/Lymphatic: Denies easy bleeding and Denies easy bruising Patient History Medical History Anemia (Inactive) Nephrolithiasis (Inactive) Surgical History (Updated 12/16/17 @ 22:06 by Chirag Butler DO) S/P ureteral stent placement (Acute) Social History Smoking Status: Current every day smoker Smoking Status: Current every day smoker alcohol intake frequency: holidays/special occasions only Substance Use Type: marijuana Exam Initial Vital Signs Initial Vital Signs: Vital Signs Temperature 98.9 F 07/28/19 18:30 Pulse Rate 59 L 07/28/19 18:30 Respiratory Rate 18 07/28/19 18:30 Blood Pressure 121/58 L 07/28/19 18:30 Pulse Oximetry 100 07/28/19 18:30 Const General: cooperative and comfortable HENMT Head: normal to inspection and normocephalic Resp Effort & Inspection: normal respiratory effort Auscultation: clear to auscultation bilaterally Cardio Rate: regular rate Rhythm: regular rhythm Back/Spine/Pelvis Cervical Spine: cervical muscular tenderness (Left sign), pain with cervical ROM, No cervical spasm and No cervical spinal tenderness Thoracic/Lumbar Spine: No thoraco-lumbar spasm, No thoracic spinal tenderness and No lumbar spinal tenderness Skin Lesions: no lesions Rashes: no rashes Neuro General: alert and awake Extrem General: normal to inspection and capillary refill normal Psych Appearance: grossly normal and well kempt Course Orders Ordered: Discontinued Medications Ketorolac Tromethamine (Toradol) 30 mg IM NOW ONE Stop: 07/28/19 19:09 Last Admin: 07/28/19 19:19 Dose: 30 mg Documented by: WILLEM Vital Signs Vital signs: Vital Signs - 8 hr 07/28/19 18:30 07/28/19 19:36 Temperature 98.9 F Pulse Rate 59 L 80 Respiratory Rate 18 16 Blood Pressure 121/58 L Blood Pressure [Left Arm] 105/68 Pulse Oximetry 100 98 MDM - Back Pain/Injury MDM Narrative Medical decision making narrative: Suspect musculoskeletal. No signs of meningitis. Will hold on radiologic studies for now. Patient was given symptom treatment. Discussed return precautions and follow-up instructions. He expressed understanding and agreement with plan. Discharge Plan Departure Patient Disposition: Home Clinical Impression: Acute neck pain Discharge Date/Time: 07/28/19 19:39 Instructions: DI for Back Spasm Activity Restrictions/Additional Instructions: You can use heat and ice. I recommend that you do light stretching. Contact her primary provider for a follow-up. Recommend that after 24 hours you continue with an anti-inflammatories such as Motrin or Naprosyn or Aleve or naproxen. Prescriptions: New lidocaine 5 % adhesive patch,medicated 1 patch TOP DAILY Qty: 15 RF: 0 cyclobenzaprine 10 mg tablet 10 mg PO TID PRN (Reason: muscle spasm) Qty: 12 RF: 0 No Action hydrocodone-acetaminophen 5-325 mg tablet 1 tab PO Q4-6H PRN (Reason: pain) Qty: 10 RF: 0 tamsulosin [Flomax] 0.4 mg capsule,extended release 24hr 0.4 mg PO DAILY Qty: 10 RF: 0 ondansetron [Zofran ODT] 4 mg tablet,disintegrating 4 mg PO Q6H PRN (Reason: nausea and vomiting) Qty: 10 RF: 0 ketorolac 10 mg tablet 10 mg PO Q6H PRN (Reason: pain) Qty: 20 RF: 0
[2019-07-28] MEDS: KETOROLAC 60 MG/2 ML VIAL 30 MG IM (19:19)
[2019-07-28 19:36] VITALS: BP 105/68; PULSE 80; RESP 16; O2SAT 98
== END 2019-07-28 19:39 | disposition home or self-care (01) ==
PROVIDERS: Emergency Provider Emergency Medicine
DX: M54.2 Cervicalgia (principal)
CPT/HCPCS: 96372; 99283; J1885

== ENCOUNTER 2019-08-14 18:50 | Emergency (ER) | payer OTHER, SELFPAY ==
[2019-08-14 18:55] VITALS: BP 144/65; PULSE 95; RESP 22; TEMP 37.2; O2SAT 100
--- NOTE | 2019-08-14 19:03 | ED.MALEGU ---
HPI - Male Genitourinary General Chief complaint: Abdominal Pain Stated complaint: Possible Kidney Stones Time Seen by Provider: 08/14/19 18:55 Source: patient Mode of arrival: Ambulatory Limitations: no limitations History of Present Illness HPI Narrative: 24-year-old male daily smoker with history of kidney stones presents with a chief complaint of severe, sudden onsetLeft flank pain about 1 hour prior to arrival. He denies provocation or palliation and admits to radiation into his left groin. He has had nausea and vomiting but denies any fever or chills. He has had no recent travel nor exposure to persons under suspicion for COVID-19. Patient is having normal bowel movements and denies any other abdominal pain. He does have a history of surgical intervention for stone at [facility] Onset (ago): hour(s) Duration: constant and progressively worsening Location: left flank Severity: severe Quality: sharp Relieving factors: none Exacerbating factors: none Associated symptoms: Reports nausea/vomiting Related Data Previous Rx's Medication Instructions Recorded hydrocodone-acetaminophen 1 tab PO Q4-6H PRN #10 tab 11/08/17 ondansetron [Zofran ODT] 4 mg PO Q6H PRN #10 tab 11/08/17 tamsulosin [Flomax] 0.4 mg PO DAILY #10 cap 11/08/17 ketorolac 10 mg PO Q6H PRN #20 tab 12/17/17 cyclobenzaprine 10 mg PO TID PRN #12 tab 07/28/19 lidocaine 1 patch TOP DAILY #15 each 07/28/19 ketorolac 10 mg PO Q6H PRN #14 tab 08/14/19 tamsulosin [Flomax] 0.4 mg PO DAILY #10 cap 08/14/19 Allergies Allergy/AdvReac Type Severity Reaction Status Date / Time No Known Drug Allergies Allergy Verified 07/28/19 18:30 Review of Systems Constitutional Constitutional: Denies chills, Denies fatigue, Denies fever(s), Denies frequent falls, Denies lethargy and Denies weakness Eyes Eyes: Denies change in vision, Denies eye discharge, Denies irritation and Denies loss of vision ENT Ears, Nose, Mouth, and Throat: Denies change in voice, Denies dizziness, Denies neck pain, Denies sore throat and Denies throat swelling Cardiovascular Cardiovascular: Denies chest pain, Denies irregular heart rhythm, Denies lightheadedness, Denies palpitations, Denies dyspnea, Denies dyspnea on exertion and Denies orthopnea Respiratory Respiratory: Denies cough, Denies dyspnea, Denies dyspnea on exertion and Denies wheezing Gastrointestinal Gastrointestinal: Denies abdominal pain, Denies change in bowel habits, Denies diarrhea, Reports nausea and Reports vomiting Genitourinary Genitourinary: Denies hematuria, Reports flank pain, Denies urinary incontinence and Denies urinary urgency Musculoskeletal Musculoskeletal: Denies back pain, Denies muscle weakness, Denies neck pain, Denies numbness and Denies tingling Integumentary/Breasts Skin/Breast: Denies pruritus, Denies erythema, Denies rash and Denies wounds Neurologic Neurologic: Denies behavioral changes, Denies confusion, Denies dizziness, Denies frequent falls, Denies loss of vision, Denies numbness, Denies tingling and Denies weakness Psychiatric Psychiatric: Denies anxiety, Denies behavioral changes, Denies confusion, Denies depression, Denies homicidal ideation and Denies suicidal ideation Endocrine Endocrine: Denies fatigue, Denies flushing and Denies palpitations Hematologic/Lymphatic Hematologic/Lymphatic: Denies easy bruising Allergic/Immunologic Allergic/Immunologic: Denies urticaria, Denies throat swelling and Denies wheezing Patient History Medical History Anemia (Inactive) Nephrolithiasis (Inactive) Surgical History S/P ureteral stent placement (Acute) Social History Smoking Status: Current every day smoker Smoking Status: Current every day smoker alcohol intake frequency: holidays/special occasions only Substance Use Type: marijuana Exam Narrative Exam Narrative: GENERAL: [24] year old patient appears stated age. Well-nourished, well-developed patient, in moderate distress, obviously in pain, clutching his left flank, holding a partially filled emesis bag HEAD: Atraumatic. Normocephalic. EYES: Pupils equal round and reactive. Extraocular motions intact. No scleral icterus. No injection or drainage. ENT: Nose without bleeding, purulent drainage. Throat without erythema, tonsillar hypertrophy or exudate. Airway patent. NECK: Trachea midline. Non tender CARDIOVASCULAR: Regular rate and rhythm without murmurs, gallops, or rubs. RESPIRATORY: Clear to auscultation. Breath sounds equal bilaterally. No wheezes, rales, or rhonchi. GASTROINTESTINAL: Abdomen soft, non-tender, nondistended. EXTREMITIES: No edema or joint tenderness. BACK: Nontender without deformity or crepitance. No flank tenderness. NEURO: AOx3. SKIN: No rash or erythema of visible areas Initial Vital Signs Initial Vital Signs: Vital Signs Temperature 99.0 F 08/14/19 18:55 Pulse Rate 95 H 08/14/19 18:55 Respiratory Rate 22 08/14/19 18:55 Blood Pressure 144/65 H 08/14/19 18:55 Pulse Oximetry 100 08/14/19 18:55 Course Orders Ordered: Discontinued Medications Hydrocodone Bitart/Acetaminophen (Vicodin 5/325 Prepack) 1 bottle MISC SEEINSTR ONE Stop: 08/14/19 20:35 Last Admin: 08/14/19 20:56 Dose: 1 bottle Documented by: SERENA Sodium Chloride (Normal Saline 0.9%) 1,000 mls @ 1,000 mls/hr IV BOLUS ONE Stop: 08/14/19 19:59 Last Infusion: 08/14/19 20:56 Dose: 0 mls/hr Documented by: Admin: 08/14/19 19:49 Dose: 1,000 mls/hr Documented by: SERENA Ketorolac Tromethamine (Toradol) 15 mg IV NOW ONE Stop: 08/14/19 19:01 Last Admin: 08/14/19 19:50 Dose: 15 mg Documented by: SERENA Ondansetron HCl (Zofran) 4 mg IV NOW ONE Stop: 08/14/19 19:01 Last Admin: 08/14/19 19:50 Dose: 4 mg Documented by: SERENA Ondansetron HCl (Zofran Odt Prepack) 1 bottle MISC SEEINSTR ONE Stop: 08/14/19 20:35 Last Admin: 08/14/19 20:56 Dose: 1 bottle Documented by: SERENA Vital Signs Vital signs: Vital Signs - 8 hr 08/14/19 18:55 08/14/19 21:10 Temperature 99.0 F Pulse Rate 95 H 74 Respiratory Rate 22 14 Blood Pressure 144/65 H 128/81 Pulse Oximetry 100 100 MDM - Male Genitourinary Lab Data Result diagrams: 08/14/19 09:35 08/14/19 09:35 Labs: Lab Results 08/14/19 08/14/19 Range/Units 09:35 09:35 WBC 7.3 (4.5-11.0) X10^3/uL RBC 4.79 (4.5-5.9) X10^6/uL Hgb 10.5 L (13.5-17.5) g/dL Hct 33.6 L (41-53) % MCV 70.1 L (80-100) fL MCH 22.0 L (26-34) PG MCHC 31.3 (30-36) % RDW 25.9 H (11.6-14.8) % Plt Count 245 (150-400) X10^3/uL Neut % (Auto) 70.5 (50-75) % Lymph % (Auto) 19.1 L (25-40) % [place] % (Auto) 4.9 (3-14) % Eos % (Auto) 5.1 H (2-4) % Baso % (Auto) 0.4 (0-2) % Neut # (Auto) 5100 (1705-9842) /uL Lymph # (Auto) 1400 (6776-6226) /uL [place] # (Auto) 400 (0-900) /uL Eos # (Auto) 400 (0-450) /uL Baso # (Auto) 0 (0-100) /uL RBC Morphology See below Hypochromasia 2+ H Poikilocytosis 2+ H Anisocytosis 3+ H Microcytosis 2+ H Sodium 139 (137-145) mmol/L Potassium 4.3 (3.4-5.1) mmol/L Chloride 103 (98-107) mmol/L Carbon Dioxide 26 (22-32) mmol/L BUN 17 (9-20) mg/dL Creatinine 0.80 (0.66-1.25) mg/dL Estimated GFR > 60.0 (>60) mL/min BUN/Creatinine Ratio 21.3 (6-22) Glucose 110 H (70-100) mg/dL Calcium 9.3 (8.4-10.2) mg/dL Urine Dip Bedside Urine Glucose Negative Bedside Urine Bilirubin - Negative Bedside Urine Ketone - Negative Urine Specific [place] 1.025 Bedside Urine Occult Blood +++ Bedside Urine pH 6.0 Bedside Urine Protein +/- 15 Bedside Urine Urobilinogen +/- 1mg Bedside Urine Nitrite - Negative Bedside Urine Leukocytes - Negative Esterase MDM Narrative Medical decision making narrative: 24-year-old male with history of kidney stones presents with signs and symptoms very similar to his prior episodes. He has had no fever or chills and urine shows no sign of infection. No sign obstructive uropathy resulting in acute kidney injury on labs. Patient has a near complete resolution of symptoms with the above-stated therapies. He is given return precautions and has had questions answered to his apparent satisfaction Discharge Plan Departure Patient Disposition: Home Clinical Impression: Ureterolithiasis Discharge Date/Time: 08/14/19 21:00 Instructions: DI for Kidney Stones Activity Restrictions/Additional Instructions: *You have been diagnosed with [left-sided kidney stone] *What to do: *Take medications as directed: prescriptions sent to [facility] at your request *Follow up with your primary care provider in 2-3 days, call for an appointment. Let them know you were seen in the Emergency Department and that we ask that you be seen in follow up *Return to ER if you should have any new, worsening or concerning symptoms, such as [worsening pain, fever, shaking chills, persistent vomiting or other concerns] Prescriptions: New tamsulosin [Flomax] 0.4 mg capsule 0.4 mg PO DAILY Qty: 10 RF: 0 ketorolac 10 mg tablet 10 mg PO Q6H PRN (Reason: pain) Qty: 14 RF: 0 No Action hydrocodone-acetaminophen 5-325 mg tablet 1 tab PO Q4-6H PRN (Reason: pain) Qty: 10 RF: 0 tamsulosin [Flomax] 0.4 mg capsule,extended release 24hr 0.4 mg PO DAILY Qty: 10 RF: 0 ondansetron [Zofran ODT] 4 mg tablet,disintegrating 4 mg PO Q6H PRN (Reason: nausea and vomiting) Qty: 10 RF: 0 ketorolac 10 mg tablet 10 mg PO Q6H PRN (Reason: pain) Qty: 20 RF: 0 lidocaine 5 % adhesive patch,medicated 1 patch TOP DAILY Qty: 15 RF: 0 cyclobenzaprine 10 mg tablet 10 mg PO TID PRN (Reason: muscle spasm) Qty: 12 RF: 0
[2019-08-14] MEDS: SODIUM CHLORIDE 0.9% 1,000 ML 1000 ML IV (19:49)
[2019-08-14] MEDS: ONDANSETRON 4 MG/2 ML INJ IV (19:50)
[2019-08-14] MEDS: KETOROLAC 30 MG/ML VIAL 15 MG IV (19:50)
[2019-08-14 20:14] LABS: Add Manual Diff / Slide Review NO; Basophils Absolute Auto 0 /uL (0-100); Basophils Percent Auto 0.4 % (0-2); Eosinophils Absolute Auto 400 /uL (0-450); Eosinophils Percent Auto 5.1 % (2-4); Hematocrit 33.6 % (41-53); Hemoglobin 10.5 g/dL (13.5-17.5); Lymphocytes Absolute Auto 1400 /uL (1100-4500); Lymphocytes Percent Auto 19.1 % (25-40); Mean Corpuscular HGB Conc 31.3 % (30-36); Mean Corpuscular Volume 70.1 fL (80-100); Monocytes Absolute Auto 400 /uL (0-900); Monocytes Percent Auto 4.9 % (3-14); Neutrophils Absolute Auto 5100 /uL (1500-7000); Neutrophils Percent Auto 70.5 % (50-75); Platelet Count 245 X10^3/uL (150-400); Red Blood Cell Count 4.79 X10^6/uL (4.5-5.9); Red Cell Distribution Width 25.9 % (11.6-14.8); White Blood Cell Count 7.3 X10^3/uL (4.5-11.0)
[2019-08-14 20:20] LABS: BUN Creatinine Ratio 21.3 (6-22); Blood Urea Nitrogen 17 mg/dL (9-20); Calcium 9.3 mg/dL (8.4-10.2); Carbon Dioxide 26 mmol/L (22-32); Chloride 103 mmol/L (98-107); Estimated Glomerular Filt Rate > 60.0 mL/min (>60); Glucose 110 mg/dL (70-100); HEMOLYSIS 28 (0-50); Potassium 4.3 mmol/L (3.4-5.1); Sodium 139 mmol/L (137-145)
[2019-08-14 20:53] LABS: Anisocytosis 3+
[2019-08-14 20:55] LABS: Hypochromasia 2+; Microcytosis 2+
[2019-08-14 20:56] LABS: Poikilocytosis 2+
[2019-08-14] MEDS: ONDANSETRON 4 MG ODT PREPACK 1 BOTTLE MISC (20:56)
[2019-08-14] MEDS: HYDROCODONE/ACET 5/325 PREPACK 1 BOTTLE MISC (20:56)
[2019-08-14 21:10] VITALS: BP 128/81; PULSE 74; RESP 14; O2SAT 100
== END 2019-08-14 21:00 | disposition home or self-care (01) ==
PROVIDERS: Emergency Provider Emergency Medicine
DX: N20.1 Calculus of ureter (principal); Z87.442 Personal history of urinary calculi; R11.2 Nausea with vomiting, unspecified
CPT/HCPCS: 36415; 80048; 81003; 85025; 96361; 96374; 96375; 99284; J1885; J2405